=== PATIENT | female | born 1975 | race Caucasian/White ===

== ENCOUNTER → 2024-04-07 18:18 | Outpatient (REF) | payer BC, SELFPAY | LOC: WDC 18:18 | PROVIDERS: ATTENDING PHYSICIAN Nurse Practitioner Adult Health; FAMILY PHYSICIAN Physician Assistant | DX: Z12.31 Encounter for screening mammogram for malignant neoplasm of breast (principal); Z01.419 Encounter for gynecological examination (general) (routine) without abnormal findings | CPT/HCPCS: 77063; 77067 ==

== ENCOUNTER → 2025-04-08 16:33 | Outpatient (REF) | payer BC, SELFPAY | LOC: WDC 16:33 | PROVIDERS: ATTENDING PHYSICIAN Nurse Practitioner Adult Health; FAMILY PHYSICIAN Physician Assistant | DX: Z12.31 Encounter for screening mammogram for malignant neoplasm of breast (principal) | CPT/HCPCS: 77063; 77067 ==